=== PATIENT | male | born 1995 ===

== ENCOUNTER 2020-01-22 22:26 | Emergency (ER) | payer OTHER ==
[~2020-01-22] VITALS: Ht 172.7 cm; Wt 62.0 kg
[2020-01-22 22:33] VITALS: BP 146/88
--- NOTE | 2020-01-22 23:27 | NUR ---
MOTHER AT PT BS AT THIS TIME. PT KEEPS STATING "I JUST WANT TO GO HOME". DR LAW TO BS TO SEE PT.
--- NOTE | 2020-01-22 23:50 | NUR ---
PT IS COOPERATIVE IN BED AT THIS TIME. PT STILL REFUSES VITAL SIGNS AT THIS TIME. PT ATTACHED TO PULSE OXIMETER WITH PT PERMISSION. PT O2 WDL.
--- NOTE | 2020-01-23 00:02 | NUR ---
PT RIPPED IV OUT AT THIS TIME.
--- NOTE | 2020-01-23 02:27 | NUR ---
PT D/C WITHOUT IV OR VS, PT RUSHED OUT OF ED. PT MOTHER NOTIFIED OF PT D/C PER REQUEST WITH PT CONSENT, MOTHER TO PICK PT UP TO DRIVE HOME. SOCIAL WORK ADMINISTRATOR NOTIFIED OF PT ELOPMENT AND DENIAL OF D/C INSTRUCTIONS. PT AMBULATES TO LOBBY AND OUTSIDE OF ED WITH STEADY GAIT FOR RIDE HOME WITH MOTHER AT THIS TIME.
== END 2020-01-23 02:31 | disposition home or self-care (01) ==
LOC: ED 01-23 02:20
DX: R55 Syncope and collapse (principal); F15.129 Other stimulant abuse with intoxication, unspecified; F16.129 Hallucinogen abuse with intoxication, unspecified; Z72.9 Problem related to lifestyle, unspecified
CPT/HCPCS: 99283